=== PATIENT | female | born 1995 | race Caucasian/White ===

== ENCOUNTER 2016-08-28 16:41 | Inpatient (IN) | payer OTHER ==
[~2016-08-28] VITALS: Ht 137.2 cm; Wt 40.2 kg
[~2016-08-28 16:41] MED LIST: BACTRIM,SEPT1 TABLET PO; CIPRO250 MG PO; FERGON324 MG PO; K-DUR20 MEQ PO; KEFLEX500 MG PO; Motrin PO; NOHOMEMEDS; PHENERGAN25 MG PR; PRENATAL TABLE1 EAC3 PO; PROZAC; PYRIDIUM100 MG PO; REGLAN5 MG PO; TRAMADOL HCL50 MG PO; ZANTAC150 MG PO; ZOFRAN ODT4 MG PO
[2016-08-28 17:05] LABS: MCH 31.3 PG (29.0-34.0); MCHC 34.7 G/DL (30.0-36.0); MCV 90.2 FL (83-99); MEAN PLAT.VOLUME 9.6 uM^3 (9.5-12.4); PLATELET COUNT 350 K/uL (156-360); RBC DIS.WIDTH-CV 12.7 % (11.8-14.6); RBC DIS.WIDTH-SD 41.1 % (39-53); RED BLOOD COUNT 4.99 M/uL (3.80-5.20); WHITE BLOOD COUNT 8.1 K/uL (4.1-10.2)
[2016-08-28 17:14] LABS: CHLORIDE 104 mEq/L (99-109); POTASSIUM 3.7 mEq/L (3.7-5.4); SODIUM 142 mEq/L (136-147)
[2016-08-28 17:16] LABS: GLUCOSE 86 mg/dL (70-99)
[2016-08-28 17:17] LABS: ANION GAP 14 MEQ/L (2-14)
[2016-08-28 17:19] LABS: GFR ESTIMATE (CALCULATED) > 59 mL/min/; SERUM ETHYL ALCOHOL 94 mg/dL
[2016-08-28 17:20] LABS: UREA NITROGEN (BUN) 8 mg/dL (9-23)
[2016-08-28 17:28] LABS: QUANTITATIVE HCG < 4.0 MIU/ML
[2016-08-28 18:55] LABS: AMPHETAMINE NEGATIVE (500 ng/mL); BARBITURATES NEGATIVE (200 ng/mL); BENZODIAZEPINES NEGATIVE (150 ng/mL); COCAINE PRESUMPTIVE POSITIVE (150 ng/mL); INTERNAL CONTROLS VALID? YES; METHADONE NEGATIVE (200 ng/mL); METHAMPHETAMINE NEGATIVE (500 ng/mL); OPIATES (MORPHINE) NEGATIVE (100 ng/mL); OXYCODONE NEGATIVE (100 ng/mL); PHENCYCLIDINE NEGATIVE (25 ng/mL); PROPOXYPHENE NEGATIVE (300 ng/mL); THC CANNABINOIDS PRESUMPTIVE POSITIVE (50 ng/mL); TRICYCLIC ANTIDEPRESSANTS NEGATIVE (300 ng/mL)
[2016-08-28 18:56] LABS: ADD MEDTOX COMMENT Y
[2016-08-28] MEDS ORDERED: FLUOXETINE HCL20 MG PO (19:06)
[2016-08-28 20:39] VITALS: BP 124/66
[2016-08-29 07:48] VITALS: BP 114/59
[2016-08-29 07:49] VITALS: BP 114/59
[2016-08-29 15:27] VITALS: BP 104/51
[2016-08-30 07:46] VITALS: BP 106/53
[2016-08-30 15:21] VITALS: BP 114/56
[2016-08-31 07:55] VITALS: BP 91/55
== END 2016-08-31 12:23 | disposition home or self-care (01) | DRG 885 ==
LOC: EME 16:41 → EDOF 18:33 → 1WEST 18:33
DX: F33.9 Major depressive disorder, recurrent, unspecified (principal); R45.851 Suicidal ideations; F10.10 Alcohol abuse, uncomplicated; F14.10 Cocaine abuse, uncomplicated; F12.10 Cannabis abuse, uncomplicated
CPT/HCPCS: 80048; 84702; 84999; 85027; 90839; 97150 GO; 97165 GO; 99281; 99284; G0480

== ENCOUNTER 2017-04-19 21:46 | Emergency (ER) | payer OTHER ==
[~2017-04-19] VITALS: Ht 137.2 cm; Wt 42.1 kg
[~2017-04-19 21:46] MED LIST changes: +FLUOXETINE HCL20 MG PO
[2017-04-19 21:52] VITALS: BP 115/71
[2017-04-19] MEDS ORDERED: NAPROSYN500 MG PO (22:57)
[2017-04-19] MEDS ORDERED: PEN-VEE K,VEET500 MG PO (22:57)
== END 2017-04-19 23:44 | disposition home or self-care (01) ==
LOC: EME 21:46
DX: K08.89 Other specified disorders of teeth and supporting structures (principal); R51 Headache; S02.5XXD Fracture of tooth (traumatic), subsequent encounter for fracture with routine healing
CPT/HCPCS: 99281; 99283

== ENCOUNTER 2017-06-10 18:59 | Emergency (ER) | payer OTHER ==
[~2017-06-10] VITALS: Ht 134.6 cm; Wt 45.3 kg
[~2017-06-10 18:59] MED LIST changes: +NAPROSYN500 MG PO; +PEN-VEE K,VEET500 MG PO
[2017-06-11] MEDS ORDERED: IBUPROFEN600 MG PO
[2017-06-11 00:15] VITALS: BP 107/53
== END 2017-06-11 00:15 | disposition home or self-care (01) ==
LOC: EME 18:59
DX: J02.9 Acute pharyngitis, unspecified (principal); R22.1 Localized swelling, mass and lump, neck; R13.10 Dysphagia, unspecified; M54.2 Cervicalgia; F17.200 Nicotine dependence, unspecified, uncomplicated
CPT/HCPCS: 70360; 87651 90; 99281; 99283; J1100; J1885

== ENCOUNTER 2017-12-11 21:06 | Emergency (ER) | payer OTHER ==
[~2017-12-11] VITALS: Ht 137.2 cm; Wt 47.7 kg
[~2017-12-11 21:06] MED LIST changes: +IBUPROFEN600 MG PO
[2017-12-11 21:20] LABS: HEMATOCRIT 42.6 % (36.0-46.0); HEMOGLOBIN 15.1 G/DL (11.9-15.5); MCHC 35.4 G/DL (30.0-36.0); MCV 87.5 FL (83-99); PLATELET COUNT 336 K/uL (156-360); RBC DIS.WIDTH-CV 12.5 % (11.8-14.6); RED BLOOD COUNT 4.87 M/uL (3.80-5.20); WHITE BLOOD COUNT 6.9 K/uL (4.1-10.2)
[2017-12-11 21:28] LABS: ALBUMIN 4.5 g/dL (3.2-4.8); CHLORIDE 105 mEq/L (99-109); POTASSIUM 3.5 mEq/L (3.7-5.4); SODIUM 139 mEq/L (136-147)
[2017-12-11 21:31] LABS: GLUCOSE 85 mg/dL (70-99)
[2017-12-11 21:33] LABS: TOTAL BILIRUBIN 0.5 mg/dL (0.0-1.0)
[2017-12-11 21:34] LABS: ALKALINE PHOSPHATASE 70 IU/L (3-129)
[2017-12-11 21:35] LABS: CREATININE 0.8 mg/dL (0.6-1.3); GFR ESTIMATE (CALCULATED) > 59 mL/min/
[2017-12-11 21:36] LABS: AST (GOT) 17 IU/L (2-34); UREA NITROGEN (BUN) 11 mg/dL (9-23)
[2017-12-11 21:37] LABS: ALT (GPT) 16 IU/L (3-49)
[2017-12-11 21:38] LABS: LIPASE 23 U/L (1.0-51.0)
[2017-12-11 21:44] LABS: QUANTITATIVE HCG < 4.0 MIU/ML
[2017-12-11 23:29] LABS: APPEARANCE SL.HAZY ((CLEAR)); BILIRUBIN NEGATIVE; BLOOD LARGE; COLOR YELLOW ((YELLOW)); GLUCOSE (STRIP) NEGATIVE; KETONES 80; LEUKOCYTES TRACE; NITRITE NEGATIVE; PROTEIN (STRIP) 100
[2017-12-11 23:50] LABS: AMPHETAMINE NEGATIVE (500 ng/mL); BENZODIAZEPINES NEGATIVE (150 ng/mL); COCAINE PRESUMPTIVE POSITIVE (150 ng/mL); METHAMPHETAMINE NEGATIVE (500 ng/mL); OPIATES (MORPHINE) NEGATIVE (100 ng/mL); PHENCYCLIDINE NEGATIVE (25 ng/mL); THC CANNABINOIDS PRESUMPTIVE POSITIVE (50 ng/mL); TRICYCLIC ANTIDEPRESSANTS NEGATIVE (300 ng/mL)
[2017-12-11 23:51] LABS: BARBITURATES NEGATIVE (200 ng/mL); BUPRENORPHINE NEGATIVE (10 ng/mL); METHADONE NEGATIVE (200 ng/mL); OXYCODONE NEGATIVE (100 ng/mL); PROPOXYPHENE NEGATIVE (300 ng/mL)
[2017-12-12] LABS: RED BLOOD CELLS NONE SEEN /HPF (0-5)
[2017-12-12 00:01] LABS: BACTERIA 3+ /HPF; CALCIUM OXALATE CRYSTALS 2+ /HPF; EPITHELIAL CELLS 2+ /HPF; MUCUS NONE SEEN /LPF; UCUL ADDED? YES
[2017-12-12 01:14] LABS: SPECIFIC GRAVITY > 1.060 (1.000-1.030)
[2017-12-12] MEDS ORDERED: PHENERGAN25 MG PR (01:29)
[2017-12-12] MEDS ORDERED: ZOFRAN ODT4 MG PO (01:29)
[2017-12-12 01:43] VITALS: BP 118/80
== END 2017-12-12 01:44 | disposition left against medical advice (07) ==
LOC: EME → EDBD 21:06 → EME 12-12 01:44
PROVIDERS: Emergency Medicine
DX: R11.2 Nausea with vomiting, unspecified (principal); R10.30 Lower abdominal pain, unspecified; F19.129 Other psychoactive substance abuse with intoxication, unspecified; F14.10 Cocaine abuse, uncomplicated; F12.10 Cannabis abuse, uncomplicated; K83.8 Other specified diseases of biliary tract; Z53.21 Procedure and treatment not carried out due to patient leaving prior to being seen by health care provider; F32.9 Major depressive disorder, single episode, unspecified; F17.200 Nicotine dependence, unspecified, uncomplicated
CPT/HCPCS: 74177; 76705; 80053; 81003; 83690; 84702; 84999; 85027; 87086; 99281; 99285; J1630; J2405; J2765; J3010; J7030